=== PATIENT | female | born 1980 | race Two or more races ===

== ENCOUNTER 2022-05-30 03:23 | Inpatient (IN) | payer MEDICAID ==
[~2022-05-30] VITALS: Ht 154.9 cm; Wt 77.6 kg
[2022-05-30] MEDS ORDERED: SODIUM CHLORIDE 0.9% 1,000 ML IV ONE (04:15)
[2022-05-30 04:34] LABS: CHLORIDE 86 mEq/L (98-107)
[2022-05-30 04:37] LABS: BASOPHILS % 0.1 % (0.0-2.0); HEMATOCRIT. 36.3 % (36.0-48.0); HEMOGLOBIN. 12.4 g/dL (12.0-16.0); LYMPHOCYTES % 12.4 % (20.0-50.0); MEAN CORPUSCULAR VOLUME 102.4 fL (81.0-99.0); MEAN PLATELET VOLUME 8.5 fl (7.4-10.4); MONOCYTES % 9.8 % (2.0-8.0); NEUTROPHILS % 77.7 % (40.0-76.0); PLATELET 406 x1000/uL (130-400); RED BLOOD CELL COUNT 3.55 mill/uL (4.2-5.4); RED CELL DISTRIBUTION WIDTH 14.4 % (11.6-14.6)
[2022-05-30 04:39] LABS: INR 1.1; PROTHROMBIN TIME 11.4 sec (9.6-11.0)
[2022-05-30 04:43] LABS: ETHANOL BLOOD 79 mg/dL
[2022-05-30 05:07] LABS: HCG SCREEN NEGATIVE
[2022-05-30] MEDS ORDERED: POTASSIUM CHLORIDE 20MEQ TABLET SR PO ONE (05:15)
[2022-05-30] MEDS ORDERED: KCL 10MEQ/50ML PREMIX 50 ML IV ONE (05:15)
[2022-05-30 07:04] LABS: CLARITY URINE CLOUDY (CLEAR); COLOR URINE DARK YELLOW (YELLOW); KETONES URINE TRACE (NEGATIVE); LEUKOCYTE ESTERASE URINE 2+ (NEGATIVE); NITRITE URINE NEGATIVE (NEGATIVE); OCCULT BLOOD URINE NEGATIVE (NEGATIVE); PROTEIN URINE 1+ (NEGATIVE)
[2022-05-30] MEDS ORDERED: MAGNESIUM/ALUMINUM HYDROXIDE/SIMETHICONE 30ML UDC PO PRN (09:15)
[2022-05-30] MEDS ORDERED: ACETAMINOPHEN 325MG TABLET PO PRN (09:15)
[2022-05-30] MEDS ORDERED: IPRATROPIUM/ALBUTEROL 0.5-3(2.5)MG/3ML NEB NEB PRN (09:15)
[2022-05-30] MEDS ORDERED: CLONIDINE 0.1MG TABLET PO PRN (09:15)
[2022-05-30] MEDS ORDERED: NITROGLYCERIN 0.4MG TABLET SL SL PRN (09:15)
[2022-05-30] MEDS ORDERED: POTASSIUM CHLORIDE 20MEQ TABLET SR PO NR (09:15)
[2022-05-30] MEDS ORDERED: ONDANSETRON HCL 4MG/2ML INJ IV PRN (09:15)
[2022-05-30] MEDS ORDERED: DOCUSATE SODIUM 100MG CAPSULE PO PRN (09:15)
[2022-05-30] MEDS ORDERED: GUAIFENESIN 200MG/10ML SUGAR FREE UDC PO PRN (09:15)
[2022-05-30] MEDS ORDERED: CEFTRIAXONE 1 G PREMIX 50 ML IV NR (09:30)
[2022-05-30] MEDS ORDERED: FOLIC ACID 1 MG, THIAMINE HCL 100 MG, MVI, ADULT NO.1 10 ML in DEXTROSE 5% WATER 1,000 ML IV ONE ×4 (09:30)
[2022-05-30] MEDS ORDERED: ENOXAPARIN 40MG/0.4ML SYR SUBCUT SCH (10:00)
[2022-05-30] MEDS: FAMOTIDINE 20MG TABLET PO SCH (11:00)
[2022-05-30 12:18] LABS: PHOSPHORUS 6.4 mg/dL (2.5-4.9); T4 FREE 0.97 ng/dL (0.76-1.46)
[2022-05-30 12:29] LABS: CORTISOL 41.5 ucg/dL
[2022-05-30 12:56] LABS: VITAMIN B12 SERUM > 2000 pg/mL (211-911)
[2022-05-30 13:30] VITALS: BP 125/71
[2022-05-30 13:44] VITALS: BP 125/71
[2022-05-30 13:52] LABS: *AMPHETAMINES SCREEN URINE NEGATIVE (NEGATIVE); *BARBITURATES SCREEN URINE NEGATIVE (NEGATIVE); *BENZODIAZEPINES SCREEN URINE NEGATIVE (NEGATIVE); *COCAINE SCREEN URINE NEGATIVE (NEGATIVE); CANNABINOID URINE SCREEN NEGATIVE (NEGATIVE); METHADONE URINE SCREEN NEGATIVE (NEGATIVE); OPIATES URINE SCREEN NEGATIVE (NEGATIVE); PHENCYCLIDINE URINE SCREEN NEGATIVE (NEGATIVE)
[2022-05-30] MEDS: ACETAMINOPHEN 325MG TABLET PO PRN ×2 (15:25→23:18)
[2022-05-30 16:00] VITALS: BP 129/78
[2022-05-30 17:12] LABS: CREATINE KINASE 44 IU/L (26-192); CREATINE KINASE MB FRACTION < 1.0 ng/mL (0.5-3.6)
[2022-05-30 20:46] VITALS: BP 108/73
[2022-05-30] MEDS ORDERED: ZOLPIDEM TARTRATE 5MG TABLET PO PRN (21:00)
[2022-05-30 23:49] LABS: CREATINE KINASE MB FRACTION 1.1 ng/mL (0.5-3.6)
[2022-05-31 00:11] VITALS: BP 117/71
[2022-05-31 04:00] VITALS: BP 100/70
[2022-05-31] MEDS: SODIUM CHLORIDE 0.9% 1,000 ML IV SCH ×2 (05:14→17:09)
[2022-05-31 08:00] VITALS: BP 117/74
[2022-05-31] MEDS: ENOXAPARIN 30MG/0.3ML SYR SUBCUT SCH (09:31)
[2022-05-31] MEDS: FAMOTIDINE 20MG TABLET PO SCH (09:31)
[2022-05-31] MEDS: CEFTRIAXONE 1,000 MG in DEXTROSE 5% WATER 50 ML IV SCH (09:31)
[2022-05-31] MEDS: ACETAMINOPHEN 325MG TABLET PO PRN (09:32)
[2022-05-31 09:56] LABS: BASOPHILS % 0.3 % (0.0-2.0); EOSINOPHILS % 1.5 % (0.0-5.0); HEMATOCRIT. 28.5 % (36.0-48.0); HEMOGLOBIN. 9.9 g/dL (12.0-16.0); LYMPHOCYTES % 16.8 % (20.0-50.0); MEAN CORPUSCULAR HEMOGLOBIN 36.3 pg (28.0-32.0); MEAN CORPUSCULAR VOLUME 104.4 fL (81.0-99.0); MEAN PLATELET VOLUME 8.6 fl (7.4-10.4); MONOCYTES % 8.1 % (2.0-8.0); NEUTROPHILS % 73.3 % (40.0-76.0); PLATELET 273 x1000/uL (130-400); RED BLOOD CELL COUNT 2.73 mill/uL (4.2-5.4); RED CELL DISTRIBUTION WIDTH 13.9 % (11.6-14.6)
[2022-05-31 10:45] LABS: CHLORIDE 94 mEq/L (98-107)
[2022-05-31 12:00] VITALS: BP 92/68
[2022-05-31] MEDS ORDERED: POTASSIUM CHLORIDE INJ 40 MEQ in DEXT 5% WATER 250 ML IV ONE (12:00)
[2022-05-31] MEDS ORDERED: POTASSIUM CHLORIDE 20MEQ TABLET SR PO SCH ×2 (12:15→14:00)
[2022-05-31] MEDS: KCL 20MEQ/100ML X 2 FOR TOTAL KCL 40MEQ/200ML IV SCH ×2 (13:16→15:20)
[2022-05-31 16:00] VITALS: BP 113/70
[2022-05-31] MEDS ORDERED: POTASSIUM CHLORIDE 20MEQ TABLET SR PO NR (16:15)
[2022-05-31 20:00] VITALS: BP 120/72
[2022-06-01] VITALS: BP 119/75
[2022-06-01 04:00] VITALS: BP 120/76
[2022-06-01] MEDS: SODIUM CHLORIDE 0.9% 1,000 ML IV SCH ×2 (07:25→22:40)
[2022-06-01 08:00] VITALS: BP 98/45
[2022-06-01 08:04] LABS: BASOPHILS % 0.2 % (0.0-2.0); HEMATOCRIT. 33.1 % (36.0-48.0); MEAN CORPUSCULAR VOLUME 104.7 fL (81.0-99.0); MEAN PLATELET VOLUME 8.6 fl (7.4-10.4); MONOCYTES % 8.2 % (2.0-8.0); NEUTROPHILS % 72.6 % (40.0-76.0); PLATELET 322 x1000/uL (130-400); RED BLOOD CELL COUNT 3.16 mill/uL (4.2-5.4); RED CELL DISTRIBUTION WIDTH 13.9 % (11.6-14.6)
[2022-06-01] MEDS ORDERED: POTASSIUM CHLORIDE 20MEQ TABLET SR PO NR (08:30)
[2022-06-01] MEDS: FAMOTIDINE 20MG TABLET PO SCH (10:03)
[2022-06-01] MEDS: ENOXAPARIN 30MG/0.3ML SYR SUBCUT SCH (10:03)
[2022-06-01] MEDS: CEFTRIAXONE 1,000 MG in DEXTROSE 5% WATER 50 ML IV SCH (10:04)
[2022-06-01] MEDS: ACETAMINOPHEN 325MG TABLET PO PRN (10:04)
[2022-06-01 12:00] VITALS: BP 126/70
[2022-06-01 16:00] VITALS: BP 121/74
[2022-06-01 21:14] VITALS: BP 121/76
[2022-06-02] VITALS: BP 125/81
[2022-06-02 04:00] VITALS: BP 141/90
[2022-06-02 06:33] LABS: HEMATOCRIT. 28.5 % (36.0-48.0); HEMOGLOBIN. 9.8 g/dL (12.0-16.0); MEAN CORPUSCULAR HEMOGLOBIN 35.8 pg (28.0-32.0); MEAN CORPUSCULAR VOLUME 104.2 fL (81.0-99.0); MEAN PLATELET VOLUME 8.7 fl (7.4-10.4); PLATELET 289 x1000/uL (130-400); RED BLOOD CELL COUNT 2.74 mill/uL (4.2-5.4)
[2022-06-02 06:54] LABS: CHLORIDE 104 mEq/L (98-107)
[2022-06-02 07:13] LABS: PHOSPHORUS 1.6 mg/dL (2.5-4.9)
[2022-06-02] MEDS: ENOXAPARIN 40MG/0.4ML SYR SUBCUT SCH (09:00)
[2022-06-02 09:10] LABS: ANTI-NUCLEAR ANTIBODIES DIRECT Negative (Negative)
[2022-06-02 10:29] LABS: PLATELET ESTIMATE NORMAL
[2022-06-02] MEDS ORDERED: MAGNESIUM 4 G PREMIX 100 ML IV NR (10:30)
[2022-06-02] MEDS ORDERED: SODIUM PHOS,M-BASIC-D-BASIC 30 MM in DEXT 5% WATER 500 ML IV NR (11:00)
[2022-06-02] MEDS: FAMOTIDINE 20MG TABLET PO SCH (11:10)
[2022-06-02] MEDS: ACETAMINOPHEN 325MG TABLET PO PRN (11:11)
[2022-06-02 16:00] VITALS: BP 129/87
[2022-06-02] MEDS ORDERED: NALOXONE HCL 0.4 MG/ML 1ML VIAL IV PRN (17:45)
[2022-06-02 20:00] VITALS: BP 127/79
[2022-06-02 20:23] LABS: *AMPHETAMINES SCREEN URINE NEGATIVE (NEGATIVE); *BARBITURATES SCREEN URINE NEGATIVE (NEGATIVE); *BENZODIAZEPINES SCREEN URINE NEGATIVE (NEGATIVE); *COCAINE SCREEN URINE NEGATIVE (NEGATIVE); CANNABINOID URINE SCREEN NEGATIVE (NEGATIVE); METHADONE URINE SCREEN NEGATIVE (NEGATIVE); OPIATES URINE SCREEN NEGATIVE (NEGATIVE); PHENCYCLIDINE URINE SCREEN NEGATIVE (NEGATIVE)
[2022-06-02] MEDS: CEFTRIAXONE 1,000 MG in DEXTROSE 5% WATER 50 ML IV SCH (20:45)
[2022-06-03] VITALS: BP 125/72
[2022-06-03 04:00] VITALS: BP 124/74
[2022-06-03 08:00] VITALS: BP 126/64
[2022-06-03] MEDS: FAMOTIDINE 20MG TABLET PO SCH (08:06)
[2022-06-03] MEDS: ENOXAPARIN 40MG/0.4ML SYR SUBCUT SCH (08:06)
[2022-06-03] MEDS: CEFTRIAXONE 1,000 MG in DEXTROSE 5% WATER 50 ML IV SCH (10:12)
[2022-06-03 11:23] LABS: HEMATOCRIT 25.7 % (36.0-48.0); HEMOGLOBIN 8.9 g/dL (12.0-16.0); MEAN CORPUSCULAR HEMOGLOBIN 35.9 pg (28.0-32.0); MEAN CORPUSCULAR VOLUME 104.1 fL (81.0-99.0); PLATELET 265 x1000/uL (130-400); RED BLOOD CELL COUNT 2.47 mill/uL (4.2-5.4); RED CELL DISTRIBUTION WIDTH 14.6 % (11.6-14.6)
[2022-06-03] MEDS ORDERED: MULT-673 MT (11:24)
[2022-06-03] MEDS ORDERED: LEVO500T90 MT (11:24)
[2022-06-03] MEDS ORDERED: FOLI-43 MT (11:24)
[2022-06-03] MEDS ORDERED: THIA50TA12 MT (11:24)
[2022-06-03 11:51] LABS: CHLORIDE 106 mEq/L (98-107)
[2022-06-03 11:57] LABS: PHOSPHORUS 3.4 mg/dL (2.5-4.9)
[2022-06-03 12:00] VITALS: BP 121/62
[2022-06-03 13:11] VITALS: BP 126/64
== END 2022-06-03 18:25 | disposition home health service (06) | DRG 720 ==
LOC: ER 03:23 → EDBD 03:23 → 7WST 06:33 → ENRESERV 10:54
PROVIDERS: ADMIT Internal Medicine; ATTEND Internal Medicine
DX: A41.51 Sepsis due to Escherichia coli [E. coli] (principal); N17.0 Acute kidney failure with tubular necrosis; G93.49 Other encephalopathy; E44.0 Moderate protein-calorie malnutrition; D57.1 Sickle-cell disease without crisis; E87.1 Hypo-osmolality and hyponatremia; E88.09 Other disorders of plasma-protein metabolism, not elsewhere classified; E87.6 Hypokalemia; F17.210 Nicotine dependence, cigarettes, uncomplicated; K76.9 Liver disease, unspecified; N39.0 Urinary tract infection, site not specified; N18.9 Chronic kidney disease, unspecified; E83.39 Other disorders of phosphorus metabolism; E83.42 Hypomagnesemia; D53.9 Nutritional anemia, unspecified; R65.20 Severe sepsis without septic shock; E53.8 Deficiency of other specified B group vitamins; F10.229 Alcohol dependence with intoxication, unspecified; Z68.32 Body mass index [BMI] 32.0-32.9, adult; Y90.3 Blood alcohol level of 60-79 mg/100 ml
CPT/HCPCS: 36415; 76770; 80048; 80053; 80305; 80320; 81003; 82533; 82550; 82553; 82607; 82746; 83036; 83540; 83550; 83735; 84100; 84439; 84443; 84484; 84703; 85025; 85027; 86038; 86160; 87077; 87186; 93005; 93306; 93970; 97162; 97166; 99291; C1893; J0696; J1650; J3411; J3475; J3480; J3490; J7030; J7060; J7070; G0480

== ENCOUNTER 2022-06-20 09:17 | Emergency (ER) | payer MEDICAID ==
[~2022-06-20] VITALS: Ht 167.6 cm; Wt 81.0 kg
[~2022-06-20 09:17] MED LIST: FOLI-43 MT; LEVO500T90 MT; MULT-673 MT; THIA50TA12 MT
[2022-06-20 09:20] VITALS: BP 116/73
== END 2022-06-20 10:25 | disposition home or self-care (01) ==
LOC: ER 09:17
DX: Z04.89 Encounter for examination and observation for other specified reasons (principal); D57.1 Sickle-cell disease without crisis; F10.21 Alcohol dependence, in remission
CPT/HCPCS: 99283